=== PATIENT | female | born 1980 | race Asian ===

== ENCOUNTER 2016-11-21 00:30 | Inpatient (IN) | payer SELFPAY ==
[~2016-11-21] VITALS: Ht 170 cm; Wt 77.1 kg
[2016-11-21] MEDS ORDERED: LACTATED RINGERS 1,000 ML IV SCH (02:16)
[2016-11-21] MEDS ORDERED: IBUPROFEN 800 MG TAB PO PRN (02:20)
[2016-11-21 02:42] LABS: BASOPHILS # (AUTO) 0.2 K/uL (0.00-0.22); BASOPHILS % (AUTO) 2.1 % (0.0-2.0); EOSINOPHILS # (AUTO) 0.2 K/uL (0-0.4); EOSINOPHILS % (AUTO) 2.2 % (0.0-4.0); HEMATOCRIT 40.2 % (36-48); HEMOGLOBIN 13.6 g/dL (12.0-16.0); LYMPHOCYTES # (AUTO) 2.3 K/uL (2.5-16.5); LYMPHOCYTES % (AUTO) 24.4 % (20.5-51.1); MEAN CORPUSCULAR HEMOGLOBIN 31 pg (27-31); MEAN CORPUSCULAR HGB CONC 34 g/dL (33-37); MEAN CORPUSCULAR VOLUME 92 fL (80-94); MONOCYTES # (AUTO) 0.5 K/uL (0.8-1.0); NEUTROPHILS # (AUTO) 6.2 K/uL (1.8-7.7); NEUTROPHILS % (AUTO) 66.3 % (42.2-75.2); PLATELET COUNT (AUTO) 159 K/uL (140-450); RED BLOOD CELL COUNT(AUTO) 4.38 MIL/uL (4.20-5.40); RED CELL DISTRIBUTION WIDTH 12.8 % (11.6-13.7); WHITE BLOOD COUNT (AUTO) 9.4 K/uL (4.8-10.8)
[2016-11-21 02:43] LABS: APPEARANCE,URINE CLEAR (CLEAR); BILIRUBIN,URINE NEGATIVE (NEGATIVE); BLOOD, URINE NEGATIVE (NEGATIVE); COLOR,URINE YELLOW (YELLOW); LEUKOCYTE ESTERASE ,URINE NEGATIVE (NEGATIVE); NITRITE, URINE NEGATIVE (NEGATIVE); UGLUCOSE NEGATIVE (NEGATIVE)
[2016-11-21 02:59] LABS: ALBUMIN 2.7 g/dL (3.4-5.0); ANION GAP 13.1 (8-16); CARBON DIOXIDE 23.5 mmol/L (21-32); CREATININE 0.5 mg/dL (0.6-1.3); POTASSIUM 3.6 mmol/L (3.5-5.1); TOTAL BILIRUBIN 0.4 mg/dL (0.0-1.0)
[2016-11-21] MEDS ORDERED: ceFAZolin 1,000 MG VIAL ONE (06:54)
[2016-11-21] MEDS ORDERED: BUPIVACAINE-MPF 0.75% 10 ML VIAL INJ ONE (07:00)
[2016-11-21] MEDS ORDERED: MORPHINE PRES FREE 10 MG/10 ML AMP IV ONE (07:11)
[2016-11-21] MEDS ORDERED: MIDAZOLAM 2 MG/2 ML VIAL ONE (07:11)
[2016-11-21] MEDS ORDERED: TRIAMCINOLONE 40 MG/ML 5ML VIAL ONE (07:16)
[2016-11-21] MEDS ORDERED: OXYTOCIN 10 UNITS/ML VIAL ONE ×2 (07:16→07:28)
[2016-11-21] MEDS ORDERED: METHYLERGONOVINE 0.2 MG/ML AMP ONE (07:28)
[2016-11-21] MEDS ORDERED: OXYTOCIN 20 UNITS/LR PREMIX 1,000 ML IV SCH (07:39)
[2016-11-21] MEDS ORDERED: HYDROmorphone 1 MG/ML AMP IVP PRN (07:40)
[2016-11-21] MEDS ORDERED: diphenhydrAMINE 50 MG/ML VIAL IVP PRN ×2 (07:40)
[2016-11-21] MEDS ORDERED: NALBUPHINE 10 MG/ML AMP IVP PRN (07:40)
[2016-11-21] MEDS ORDERED: ONDANSETRON 4 MG/2 ML VIAL IVP PRN ×2 (07:40)
[2016-11-21] MEDS ORDERED: NALOXONE 0.4 MG/ML VIAL IVP PRN ×3 (07:40)
[2016-11-21] MEDS ORDERED: MEPERIDINE 25 MG/ML SYR IVP PRN (07:40)
[2016-11-21 08:05] LABS: RAPID PLASMA REAGIN NON-REACTIVE (Non Reactiv)
[2016-11-21] MEDS ORDERED: OXYTOCIN 20 UNITS/LR PREMIX 1,000 ML IV ONE (08:22)
[2016-11-21] MEDS ORDERED: ONDANSETRON 4 MG/2 ML VIAL ONE (08:22)
--- NOTE | 2016-11-21 11:21 | NUR ---
PATIENT HAS BEEN SCREENED AND CATEGORIZED LOW NUTRITION RISK. PATIENT WILL BE SEEN WITHIN 7 DAYS OF ADMISSION. 11/27/[address]
[2016-11-21] MEDS ORDERED: oxyCODONE/APAP 5/325 MG 1 TAB TAB PO PRN (11:25)
[2016-11-21] MEDS ORDERED: TRIMETHOBENZAMIDE 200 MG/2 ML SYR IM PRN (11:25)
[2016-11-21] MEDS ORDERED: HYDROcodone/APAP 5/325 MG 1 TAB TAB PO PRN (11:25)
[2016-11-21] MEDS ORDERED: TEMAZEPAM 15 MG CAP PO PRN (11:25)
[2016-11-21] MEDS: KETOROLAC 30 MG/ML VIAL IM/IVP SCH ×2 (12:00→18:00)
[2016-11-21] MEDS: OXYTOCIN 20 UNITS/LR PREMIX 1,000 ML IV SCH ×2 (13:50→22:01)
--- NOTE | 2016-11-21 20:24 | NUR ---
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
[2016-11-21] MEDS ORDERED: DOCUSATE SOD/SENNA 50/8.6 MG 1 TAB PO SCH (21:00)
[2016-11-22] MEDS: KETOROLAC 30 MG/ML VIAL IM/IVP SCH (00:06)
[2016-11-22 05:52] LABS: BASOPHILS # (AUTO) 0.3 K/uL (0.00-0.22); BASOPHILS % (AUTO) 2.3 % (0.0-2.0); EOSINOPHILS # (AUTO) 0.3 K/uL (0-0.4); EOSINOPHILS % (AUTO) 2.5 % (0.0-4.0); HEMATOCRIT 38.8 % (36-48); HEMOGLOBIN 13.2 g/dL (12.0-16.0); LYMPHOCYTES % (AUTO) 8.8 % (20.5-51.1); MEAN CORPUSCULAR HEMOGLOBIN 32 pg (27-31); MEAN CORPUSCULAR HGB CONC 34 g/dL (33-37); MEAN CORPUSCULAR VOLUME 93 fL (80-94); MONOCYTES # (AUTO) 0.5 K/uL (0.8-1.0); MONOCYTES % (AUTO) 4.5 % (1.7-9.3); NEUTROPHILS # (AUTO) 9.3 K/uL (1.8-7.7); NEUTROPHILS % (AUTO) 81.9 % (42.2-75.2); PLATELET COUNT (AUTO) 165 K/uL (140-450); RED BLOOD CELL COUNT(AUTO) 4.18 MIL/uL (4.20-5.40); RED CELL DISTRIBUTION WIDTH 12.9 % (11.6-13.7)
[2016-11-22 07:07] LABS: WHITE BLOOD COUNT (AUTO) 11.4 K/uL (4.8-10.8)
[2016-11-22] MEDS: BISACODYL 5 MG TABEC PO SCH (20:58)
[2016-11-22] MEDS: CALCIUM POLYCARBOPHIL 625 MG TAB PO SCH (21:02)
[2016-11-23] MEDS: BISACODYL 5 MG TABEC PO SCH ×2 (09:00→21:35)
[2016-11-23] MEDS: CALCIUM POLYCARBOPHIL 625 MG TAB PO SCH (09:00)
[2016-11-23] MEDS ORDERED: CALCIUM POLYCARBOPHIL 625 MG TAB PO PRN (09:55)
[2016-11-23] MEDS ORDERED: DOCUSATE SOD/SENNA 50/8.6 MG 1 TAB PO PRN (09:55)
[2016-11-24] MEDS ORDERED: IBUP-2213 PO (08:54)
== END 2016-11-24 14:05 | disposition home or self-care (01) | DRG 766 ==
LOC: MFCC 00:30
PROVIDERS: ADMIT Obstetrics & Gynecology; ATTEND Obstetrics & Gynecology
PROC: 10D00Z1 Extraction of Products of Conception, Low, Open Approach (ICD-10-PCS; principal; 2016-11-21 07:00)
PROC: 3E0234Z Introduction of Serum, Toxoid and Vaccine into Muscle, Percutaneous Approach (ICD-10-PCS; 2016-11-23)
DX: O34.211 Maternal care for low transverse scar from previous cesarean delivery (principal); O09.523 Supervision of elderly multigravida, third trimester; Z37.0 Single live birth; O69.1XX0 Labor and delivery complicated by cord around neck, with compression, not applicable or unspecified; Z3A.39 39 weeks gestation of pregnancy; Z23 Encounter for immunization
CPT/HCPCS: 36415; 51702; 80053; 81003; 85025; 86592; 86886; 86900; 86901; 90715; J0690; J1885; J2210; J2250; J2270; J2405; J2590; J3301; J3490; J7060; J7120